=== PATIENT | male | born 1960 | race Caucasian/White ===

== ENCOUNTER 2021-10-26 03:22 | Emergency (ER) | payer BC ==
[~2021-10-26] VITALS: Ht 190.5 cm; Wt 84.3 kg
[2021-10-26 05:11] LABS: CLARITY URINE CLEAR (CLEAR); COLOR URINE YELLOW (YELLOW); KETONES URINE NEGATIVE (NEGATIVE); LEUKOCYTE ESTERASE URINE NEGATIVE (NEGATIVE); NITRITE URINE NEGATIVE (NEGATIVE); OCCULT BLOOD URINE NEGATIVE (NEGATIVE); PROTEIN URINE NEGATIVE (NEGATIVE); SPECIFIC GRAVITY URINE 1.009 (1.005-1.030); UROBILINOGEN URINE 0.2 E.U./dL (0.2-1.0)
[2021-10-26] MEDS ORDERED: SCOP1PAT2 TP (05:44)
[2021-10-26 06:00] VITALS: BP 111/84
== END 2021-10-26 06:00 | disposition home or self-care (01) ==
LOC: EDBD 03:22 → ER 03:22
DX: N40.1 Benign prostatic hyperplasia with lower urinary tract symptoms (principal); R33.8 Other retention of urine; Z98.890 Other specified postprocedural states; Z88.0 Allergy status to penicillin
CPT/HCPCS: 81003; 99283; A4315